=== PATIENT | male | born 1945 | race Two or more races ===

== ENCOUNTER 2020-05-24 09:38 | Outpatient (CLI) | payer OTHER | END 2020-05-24 10:56 | disposition home or self-care (01) | LOC: NUCLEAR 09:38 | PROVIDERS: ATTEND Internal Medicine Cardiovascular Disease | DX: I10 Essential (primary) hypertension (principal) ==

== ENCOUNTER 2020-11-07 08:15 | Inpatient (IN) | payer OTHER ==
[~2020-11-07] VITALS: Ht 180.3 cm; Wt 104.3 kg
[2020-11-07] MEDS ORDERED: ALTACE10 MG PO (11:40)
[2020-11-07] MEDS ORDERED: SYNTHROID50 MCG PO (11:40)
[2020-11-07] MEDS ORDERED: NORVASC2.5 M1 PO (11:41)
[2020-11-07] MEDS ORDERED: METFORMIN HCL500 M3 PO (11:41)
[2020-11-13] MEDS ORDERED: GLIPIZIDE10 MG (08:11)
[2020-11-13] MEDS ORDERED: SYNTHROID75 MCG (08:12)
[2020-11-13] MEDS ORDERED: FINASTERIDE5 MG (08:12)
[2020-11-13] MEDS ORDERED: AMLODIPINE BESYL5 MG (08:12)
[2020-11-13] MEDS ORDERED: VITAMIN B-121000 MCG (08:13)
[2020-11-13] MEDS ORDERED: TRIPLE ANTIBIOT28 G1 (08:13)
[2020-11-13] MEDS ORDERED: TAMSULOSIN HCL0.4 MG (08:13)
[2020-11-13] MEDS ORDERED: EYE ALLERGY REL15 ML (08:13)
[2020-11-13] MEDS ORDERED: C-1000 WITH R1000 MG (08:13)
[2020-11-13] MEDS ORDERED: VITAMIN E450 M1 (08:13)
[2020-11-13] MEDS ORDERED: ALOE VERA5000 MG (08:14)
== END 2020-11-15 11:34 | disposition home or self-care (01) | DRG 714 ==
LOC: O/R 11-13 05:55 → SURH 11-13 05:55
PROVIDERS: ADMIT Urology; ATTEND Urology
PROC: 0VB08ZZ Excision of Prostate, Via Natural or Artificial Opening Endoscopic (ICD-10-PCS; principal; 2020-11-13 07:00)
DX: N40.0 Benign prostatic hyperplasia without lower urinary tract symptoms (principal); R33.8 Other retention of urine; I10 Essential (primary) hypertension